=== PATIENT | female | born 1995 | race Caucasian/White ===

== ENCOUNTER 2017-11-17 22:33 | Emergency (ER) | payer MEDICAID ==
[2017-11-17] MEDS: CEFTRIAXONE 1 GM INJ IM (23:52)
[2017-11-17] MEDS: IBUPROFEN 800 MG TAB PO (23:52)
[2017-11-17] MEDS: AZITHROMYCIN 250 MG TAB PO (23:52)
== END 2017-11-18 00:31 | disposition home or self-care (01) ==
LOC: FTE 22:33
DX: H10.022 Other mucopurulent conjunctivitis, left eye (principal); F17.210 Nicotine dependence, cigarettes, uncomplicated
CPT/HCPCS: 87070; 96372; 99284-25